=== PATIENT | male | born 1965 | race Caucasian/White ===

== ENCOUNTER → 2018-01-07 09:08 | Outpatient (REF) | payer BC, SELFPAY ==
[2018-01-07 16:22] LABS: Basophils % 0.5 % (0.1-2.0); Eosinophils # 0.3 K/mm3 (0.0-0.4); Eosinophils % 5.1 % (0.1-12.0); Hematocrit 49.2 % (42.0-52.0); Hemoglobin 16.1 g/dL (14.1-18.0); Lymphocytes # 1.7 K/mm3 (0.7-4.5); Mean Corpuscular HGB Conc 32.6 g/dL (31.8-35.4); Mean Corpuscular Hemoglobin 30.6 pg (27.0-31.2); Mean Corpuscular Volume 93.9 fl (80-94); Mean Platelet Volume 8.6 fl (7.4-10.4); Monocytes # 0.3 K/mm3 (0.1-1.0); Monocytes % 6.9 % (1.7-9.3); Neutrophils # 2.6 K/mm3 (1.8-7.8); Neutrophils % 52.6 % (37.0-80.0); Platelet Count 299 K/mm3 (142-424); Red Blood Count 5.25 M/mm3 (4.60-6.20); Red Cell Distribution Width 13.2 % (11.5-17.5)
[2018-01-07 17:05] LABS: Hemoglobin A1C 5.6 % (0.0-7.0)
[2018-01-07 18:41] LABS: Alanine Aminotransferase 48 U/L (12-78); Albumin Level 3.8 gm/dL (3.4-5.0); Albumin/Globulin Ratio 1.1 (1.1-1.8); Alkaline Phosphatase 100 U/L (46-116); Anion Gap 12.2 mEq/L (5-15); Aspartate Amino Transferase 28 U/L (15-37); Bilirubin,Total 0.4 mg/dL (0.2-1.0); Blood Urea Nitrogen 19 mg/dL (7-18); Calcium 8.9 mg/dL (8.5-10.1); Carbon Dioxide 28 mmol/L (21.0-32.0); Chloride 107 mmol/L (98-107); Cholesterol 191 mg/dL (140-200); Creatinine,Serum 1.07 mg/dL (0.70-1.30); Estimated Glomerular Filt Rate 73 ml/min (>60); Free T4 (Free Thyroxine) 0.84 ng/dl (0.76-1.46); GFR (African American) 89 ML/MIN (>60); Globulin 3.4 gm/dl (1.3-3.2); Glucose 110 mg/dL (74-106); HDL Cholesterol 48 mg/dL (27-67); LDL Cholesterol 120 mg/dL (0-130); Potassium 5.2 mmoL/L (3.5-5.1); Sodium 142 mmol/L (136-145); Thyroid Stimulating Hormone 2.65 uIU/ml (0.358-3.740); Total Protein,Serum 7.2 gm/dL (6.4-8.2); Triglycerides 117 mg/dL (30-200); VLDL Cholesterol 23 mg/dL (0-40)
[2018-01-09 12:35] LABS: Vitamin D 25 Hydroxy 25.6 ng/mL (30.0-100.0)
== END ==
LOC: LAB 09:08
PROVIDERS: Visit Provider Nurse Practitioner Family
DX: R53.83 Other fatigue (principal)
CPT/HCPCS: 80053; 80061; 82652; 83036; 84439; 84443; 85025

== ENCOUNTER → 2018-08-05 10:07 | Outpatient (CLI) | payer BC, SELFPAY | PROVIDERS: PCP Emergency Medicine; Visit Provider Physician Assistant | DX: R55 Syncope and collapse (principal) | CPT/HCPCS: 93225; 93226 ==

== ENCOUNTER 2018-08-06 10:17 | Observation (INO) ==
--- NOTE | 2018-08-06 10:21 | Emergency Department Note ---
ED Disposition Clinical Impression: Chest pain, precordial Disposition: Still a Patient Condition on Discharge: Good Referrals: Bladimir Guidry MD [Primary Care Provider] - - Critical Care Critical Care Time: No Attestation: On , the high probability of a clinically significant, sudden or life threa tening deterioration of the following system(s) required my full and direct attention, intervention and personal management. The time I documented below is in addition to time spent performing reported procedures but includes the following listed in this critical care notation. Medical Decision Making - [place] Inquiry Pt receiving controlled substance: No Vital Signs: 08/06/18 10:18 08/06/18 10:43 08/06/18 10:49 Temperature 97.9 F Temperature Source Oral Pulse Rate [Right Radial] 63 66 63 Respiratory Rate 20 16 18 Blood Pressure [Right Arm] 117/85 122/85 114/74 Blood Pressure Mean [Right Arm] 95 97 87 Blood Pressure Source [Right Arm] Automatic Cuff Automatic Cuff Automatic Cuff Blood Pressure Position [Right Arm] Sitting Sitting 02 Sat by Pulse Oximetry 97 95 95 Oxygen Delivery Method Room Air Room Air Room Air 08/06/18 10:55 Temperature Temperature Source Pulse Rate [Right Radial] 66 Respiratory Rate 18 Blood Pressure [Right Arm] 106/73 Blood Pressure Mean [Right Arm] 84 Blood Pressure Source [Right Arm] Automatic Cuff Blood Pressure Position [Right Arm] Sitting 02 Sat by Pulse Oximetry Oxygen Delivery Method - Lab Data Lab Results 08/06/18 10:23: WBC 6.9, RBC 5.15, Hgb 15.8, Hct 48.4, MCV 93.9, MCH 30.7, MCHC 32.7, RDW 13.5, Plt Count 313, MPV 7.0 L, Neut % (Auto) 62.3, Lymph % (Auto) 27.6, [place] % (Auto) 5.2, Eos % (Auto) 4.3, Baso % (Auto) 0.6, Neut # (Auto) 4.3, Lymph # (Auto) 1.9, [place] # (Auto) 0.4, Eos # (Auto) 0.3, Baso # (Auto) 0.0 08/06/18 10:23: Sodium 140, Potassium 4.3, Chloride 106, Carbon Dioxide 27, Anion Gap 11.3, BUN 20 H, Creatinine 1.05, Estimated Creat Clear 117, Estimated GFR 75, Est GFR ( Amer) 90, Glucose 119 H, Calcium 8.6, Total Bilirubin 0 .4, AST 12 L, ALT 31, Alkaline Phosphatase 95, Total Creatine Kinase 89, CK-MB (CK-2) 1.0, CK-MB (CK-2) Rel Index 1.1, Troponin I < 0.02, Total Protein 7.4, Albumin 3.6, Globulin 3.8 H, Albumin/Globulin Ratio 0.9 L 08/06/18 10:23: TSH 3.09, Free T4 Index 1.9 L, Thyroxine (T4) 4.8, T3 Uptake 39 Result diagrams: 08/06/18 10:23 08/06/18 10:23 Orders (Tests/Meds): ED MEDICATIONS Generic Name Dose Route Start Last Admin Trade Name Freq PRN Reason Stop Dose Admin Nitroglycerin 0.4 mg 08/06/18 10:37 08/06/18 10:53 Nitrostat 0.4mg Sl Tablet SL 09/05/18 10:36 1 tab [id number] PRN Administration Chest Pain Discontinued Medications Generic Name Dose Route Start Last Admin Trade Name Freq PRN Reason Stop Dose Admin Aspirin 324 mg 08/06/18 10:25 08/06/18 10:29 Aspirin 81mg Chewable Tablet PO 08/06/18 10:26 324 mg ONCE ONE Administration Nitroglycerin 1 gm 08/06/18 10:57 08/06/18 10:59 Nitroglycerin 1 Inch Oint Udp TD 08/06/18 10:58 1 gm ONCE ONE Administration - Radiology Data #1 Image(s): Chest Image Reviewed: Yes I reviewed the patient's radiology image Preliminary Findings: Normal/NAD - ECG Data Tracing #1 EKG interpreted by Brice Koehler MD: Rhythm: sinus Rate: 61 Harmans: normal Ectopy: none Conduction: normal ST Segment Changes: none T Wave Changes: none Q Waves: none No evidence of acute ischemia or injury Baseline artifact and wander present, but I consider the EKG adequate for accurate interpretation. - Physician Consults Physician Consulted: Chao Time: 11:30 Reason -: Pt condition Comment/Response: Requests cardiology consult Additional Consult: ALLIE Mcfadden, for Dr. Walker Time: 11:37 Reason -: Cardiology Eval/Care Comment/Response: He will see the patient in the emergency department. 12:00 PM: Redd states that the plan is to have the patient admitted and cardiac cath in the morning. He will order an echo for today. - Reevaluation(s) Time: 11:45 Reevaluation #1: pain free. Discussed results. Advised that cardiology service will see him. Medical Decision Narrative: 11:45 AM: ALLIE Mcfadden, for Dr. Walker seeing patient. General Adult HPI - General Chief complaint: Chest Pain Stated complaint: Chest Pain Time Seen by Provider: 08/06/18 10:27 - History of Present Illness HPI narrative: Complains of precordial chest pain that started at 8 AM this morning and is been constant. He describes it as a's feeling like somebody is standing on his c hest. Denies shortness of breath or nausea. Says he is a little diaphoretic. No radiation. Nothing seems to make it better or worse. Currently rates at 4/10. No previous similar chest pains. Currently has a Holter monitor on that was placed yesterday due to syncopal episodes. Holter monitor ordered by Dr. Guidry's office, where he was seen yesterday for a PCP visit. Patient says he has been having fatigue, malaise, sleepiness, dizziness, and syncopal episodes for about 6 months, getting worse lately. Over the weekend, he passed out and hit the back of his head, has an abrasion in that area. Denies headache or neck pain. He is a smoker. Family history of coronary artery disease in his father. He does not have hypertension, diabetes, or hyperlipidemia. Drinks alcohol on weekends, not during the week. Denies drug use. - Related Data Home Medications Medication Instructions Recorded Confirmed No Known Home Medications 08/06/18 08/06/18 Allergies Allergy/AdvReac Type Severity Reaction Status Date / Time NKDA Allergy Unknown Uncoded 08/05/18 09:17 [facility] History I have reviewed the patient's past medical history: Yes Comment: MONO,FATIGUE,TESTOSTERONE DEFICIENCY,BACK PAIN Other Surgeries: Yes: Appendectomy, Hernia Repair Amputation: No Fractures: No Comment: RT KNEE ARTHROSCOPY, PLATE IN RIGHT FOREARM - Social History Smoking Status: Current every day smoker Tobacco Type: cigarettes # Packs/Day (cigarettes): 1 Alcohol Intake: current Alcohol Intake Frequency:: a few times a week Substance Use Type: denies use Occupational Status: employed Housing: house Household Members: none Family Hx:: Cancer, Heart Attack ROS Obtained: Yes All systems reviewed & no additional complaints - Constitutional Constitutional: Reports excessive sweating, Reports fatigue, Denies fever(s), Reports lethargy, Reports malaise, Reports weakness - Cardiovascular Cardiovascular: Reports chest pain - Respiratory Respiratory: No cough, No dyspnea - Gastrointestinal Gastrointestingal: Denies: abdominal pain, nausea, vomiting - Neurologic Neurologic: Denies headache(s) Physical Exam - General General appearance: alert, in no apparent distress - Head Head exam: other (Healing abrasion occipital scalp) - Eye Eye exam: Present: normal appearance, PERRL, EOMI - ENT ENT exam: Present: mucous membranes moist - Neck Neck exam: Present: normal inspection, full ROM, trachea midline. Absent: meningismus, lymphadenopathy - Chest Chest inspection: Present: normal inspection, symmetric chest wall rise. Absent: tenderness - Respiratory Respiratory exam: Present: normal lung sounds bilaterally. Absent: respiratory distress - Cardiovascular Cardiovascular exam: Present: regular rate, normal rhythm. Absent: JVD - Abdominal Exam Abdominal exam: Present: soft, normal bowel sounds. Absent: distention, tenderness, guarding - Extremities Exam Extremities exam: Present: normal inspection, full ROM, normal capillary refill. Absent: calf tenderness - Neurological Exam Neurological exam: Present: alert, oriented X3 - Psychiatric Psychiatric exam: Present: normal affect, normal mood - Skin Skin exam: Present: warm, dry, intact, normal color
[2018-08-06 10:33] LABS: Basophils % 0.6 % (0.1-2.0); Eosinophils # 0.3 K/mm3 (0.0-0.4); Eosinophils % 4.3 % (0.1-12.0); Hematocrit 48.4 % (42.0-52.0); Hemoglobin 15.8 g/dL (14.1-18.0); Lymphocytes # 1.9 K/mm3 (0.7-4.5); Lymphocytes % 27.6 K/mm3 (10-50); Mean Corpuscular HGB Conc 32.7 g/dL (31.8-35.4); Mean Corpuscular Hemoglobin 30.7 pg (27.0-31.2); Mean Corpuscular Volume 93.9 fl (80-94); Monocytes # 0.4 K/mm3 (0.1-1.0); Monocytes % 5.2 % (1.7-9.3); Neutrophils # 4.3 K/mm3 (1.8-7.8); Neutrophils % 62.3 % (37.0-80.0); Platelet Count 313 K/mm3 (142-424); Red Blood Count 5.15 M/mm3 (4.60-6.20); Red Cell Distribution Width 13.5 % (11.5-17.5); White Blood Count 6.9 K/mm3 (4.8-10.8)
[2018-08-06 10:56] LABS: Alanine Aminotransferase 31 U/L (12-78); Albumin Level 3.6 gm/dL (3.4-5.0); Albumin/Globulin Ratio 0.9 (1.1-1.8); Alkaline Phosphatase 95 U/L (46-116); Anion Gap 11.3 mEq/L (5-15); Aspartate Amino Transferase 12 U/L (15-37); Bilirubin,Total 0.4 mg/dL (0.2-1.0); Blood Urea Nitrogen 20 mg/dL (7-18); Calcium 8.6 mg/dL (8.5-10.1); Carbon Dioxide 27 mmol/L (21.0-32.0); Chloride 106 mmol/L (98-107); Creatine Kinase 89 U/L (39-308); Globulin 3.8 gm/dl (1.3-3.2); Glucose 119 mg/dL (74-106); Potassium 4.3 mmoL/L (3.5-5.1); Sodium 140 mmol/L (136-145); Total Protein,Serum 7.4 gm/dL (6.4-8.2)
[2018-08-06 11:10] LABS: Free Thyroxine Index 1.9 ug/dL (5.93-13.13); T4 (Thyroxine) 4.8 ug/dl (4.7-13.3); Thyroid Stimulating Hormone 3.09 uIU/ml (0.358-3.740)
--- NOTE | 2018-08-06 12:29 | Consult Report ---
History of Present Illness Consult date: 08/06/18 Requesting physician: Bladimir Guidry Consult reason: chest pain Chief complaint: chest pain Additional Medical History:: 1. Tobacco use, 2 packs per day for 40 years 2. Strong family history of coronary artery disease in his father and's uncles in their 50s 3. Recurrent syncope History of present illness: 52-year-old white male with history of tobacco use and strong family history of coronary artery disease in his father and uncles presented to the emergency department for chest pain. Patient relates onset of chest pain about 8:00 this morning described as a substernal heaviness and pressure without diaphoresis, nausea or vomiting. Some shortness of breath noted. Patient relates several weeks of increasing weakness and fatigue to the point of limiting activities. Patient denies any history of hypertension, hyperlipidemia or diabetes. He does smoke up to 2 packs per day. He relates 2 episodes of passing out over the last month without warning. Symptoms have not been preceded by coughing, sneezing or laughing excessively. Both times patient fell backwards and hit his head on an object. He was only out briefly before regaining consciousness. His brother was a witness the last time. Denies any history of CVA, TIA or seizure activity. Patient has been seeing Dr. Guidry for workup and has a Holter monitor in place. Due to chest pain, patient was sent to the ER for further evaluation. He did receive a total of 3 sublingual nitroglycerin with improvement in symptoms. Relief of symptoms came after nitroglycerin paste was applied. I nitial EKG shows sinus rhythm with no acute ST segment changes. Initial troponin is normal. Due to the patient's tobacco use, chest pain resolution with nitroglycerin and strong family history of coronary artery disease and recent syncopal episodes, cardiology was consulted for evaluation recommendations. [facility] History Medical History: Denies:: Diabetes Mellitus Type 2 Other Surgeries: Yes: Appendectomy, Hernia Repair Amputation: No Fractures: No - *Social History Smoking Status: Current every day smoker Tobacco Type: cigarettes # Packs/Day (cigarettes): 1 Alcohol Intake: current Alcohol Intake Frequency:: a few times a week Substance Use Type: denies use Occupational Status: employed Housing: house Household Members: none - Psychiatric History Expresses thoughts of harming self/others: None Suicide Plan Description: No Plan *Family Hx:: Cancer, Heart Attack Meds Home Medications Medication Instructions Recorded Confirmed Type No Known Home Medications 08/06/18 08/06/18 History Allergies Allergy/AdvReac Type Severity Reaction Status Date / Time NKDA Allergy Unknown Uncoded 08/05/18 09:17 Review of Systems - *Cardiovascular Reports chest pain, Reports shortness of breath with activity - *Respiratory Reports shortness of breath with activity - *Gastrointestinal Denies abdominal pain, Denies loose stools - *Genitourinary Denies blood in urine - *Musculoskeletal Denies back pain - *Neurologic Reports weakness, Denies headache(s) Exam Vital signs and Labs for Last 24 Hours: Temp Pulse Resp BP Pulse Ox 97.9 F 59 L 18 134/54 96 08/06/18 10:18 08/06/18 12:00 08/06/18 10:55 08/06/18 12:00 08/06/18 12:00 Laboratory Results - last 24 hr 08/06/18 10:23: WBC 6.9, RBC 5.15, Hgb 15.8, Hct 48.4, MCV 93.9, MCH 30.7, MCHC 32.7, RDW 13.5, Plt Count 313, MPV 7.0 L, Neut % (Auto) 62.3, Lymph % (Auto) 27.6, [place] % (Auto) 5.2, Eos % (Auto) 4.3, Baso % (Auto) 0.6, Neut # (Auto) 4.3, Lymph # (Auto) 1.9, [place] # (Auto) 0.4, Eos # (Auto) 0.3, Baso # (Auto) 0.0 08/06/18 10:23: Sodium 140, Potassium 4.3, Chloride 106, Carbon Dioxide 27, Anion Gap 11.3, BUN 20 H, Creatinine 1.05, Estimated Creat Clear 117, Estimated GFR 75, Est GFR ( Amer) 90, Glucose 119 H, Calcium 8.6, Total Bilirubin 0.4, AST 12 L, ALT 31, Alkaline Phosphatase 95, Total Creatine Kinase 89, CK-MB (CK-2) 1.0, CK-MB (CK-2) Rel Index 1.1, Troponin I < 0.02, Total Protein 7.4, Albumin 3.6, Globulin 3.8 H, Albumin/Globulin Ratio 0.9 L 08/06/18 10:23: TSH 3.09, Free T4 Index 1.9 L, Thyroxine (T4) 4.8, T3 Uptake 39 I & O for Last 24 hours: Intake & Output 08/04/18 08/05/18 08/06/18 08/07/18 11:59 11:59 11:59 11:59 Weight 216 lb - *Routine HEENT Exam Head: Present: normocephalic Eye: Present: EOMI, PERRL ENT: Present: mucous membranes moist - *Routine Neck Exam Present: supple. Absent: JVD, carotid bruit - *Routine Respiratory Exam Present: CTA bilaterally. Absent: accessory muscle use, rales, rhonchi, wheezes - *Routine Cardiovascular Exam Present: RRR. Absent: murmur, gallop, rubs - *Routine Abdominal Exam Present: soft. Absent: tenderness, distended, guarding - *Routine Extremities Exam Absent: edema, calf tenderness - *Routine Skin Exam Present: warm. Absent: cyanosis - *Routine Neurological Exam Present: alert, oriented X3, moving all extremities Assessment and Plan (1) Unstable angina Current visit: Yes Status: Acute Category: Medical Code(s): I20.0 - Unstable angina (2) Tobacco use disorder, continuous Current visit: Yes Status: Acute Category: Medical Code(s): F17.209 - Nicotine dependence, unspecified, with unspecified nicotine-induced disorders (3) Family history of coronary artery disease in father Current visit: Yes Status: Acute Category: Medical Code(s): Z82.49 - Family history of ischemic heart disease and other diseases of the circulatory system (4) Recurrent syncope Current visit: Yes Status: Acute Category: Medical Code(s): R55 - Syncope and collapse - Assessment and plan all Dx Assessment and Plan for all problems:: 1. Recommend admission to observation for serial cardiac enzymes, echocardiogram and preparation for cardiac catheterization in the AM. Patient relates he is concerned regarding the chest pain due to friends that are the same age and had the same symptoms and ended up having coronary artery disease requiring stents. 2. Recommend continuing nitroglycerin paste 1/2 inch every 6 hours 3. Add aspirin 81 mg daily, pantoprazole 40 mg daily and metoprolol tartrate 25 mg BID 4. Further recommendations pending above results
--- NOTE | 2018-08-06 13:05 | Pharmacy Consult Notes ---
[facility] Pharmacy VTE Monitoring - Patient Demographics Admission date: 08/06/18 Report Date: 08/06/18 Time: 13:05 Allergies/Adverse Reactions: Patient Allergies No Known Allergies Allergy (Unverified 08/06/18 12:57) Height: 1.78 m Weight: 97.976 kg Patient Problems: Current Active Problems Chest pain, precordial (Acute) Unstable angina (Acute) Tobacco use disorder, continuous (Acute) Family history of coronary artery disease in father (Acute) Recurrent syncope (Acute) - VTE Risk Labs: VTE Related Lab Results Hgb 15.8 g/dL (14.1-18.0) 08/06/18 10:23 Hct 48.4 % (42.0-52.0) 08/06/18 10:23 Plt Count 313 K/mm3 (142-424) 08/06/18 10:23 BUN 20 mg/dL (7-18) H 08/06/18 10:23 Creatinine 1.05 mg/dL (0.70-1.30) 08/06/18 10:23 Estimated Creat Clear 117 mL/min (0-300) 08/06/18 10:23 - Prophylaxis VTE Prophylaxis Ordered?: Yes Types of VTE Prophylaxis: TEDS Knee High Location of Applied Device: Bilateral Lower Extremeties
--- NOTE | 2018-08-07 08:04 | Progress Note ---
Addendum entered and electronically signed by ALLIE Cook 08/07/18 14:56: Cardiac cath shows normal LVEF with only a 30% LAD lesion. Medical therapy with ASA 81 mg daily and atorvastatin 40 mg daily. Recommend 48 hr holter monitor as outpatient for history of syncope. Carotids show only mild stenosis bilaterally. OK for discharge home later today. Follow up in 1-2 wks. Original Note: Subjective Date: 08/07/18 Time: 08:00 Principal diagnosis: chest pain Interval history: 52 yo WM in bed in NAD. No complaints overnight. Telemetry reviewed and no arrhythmias noted. Troponins normal X 3. Echo shows normal LVEF without sign ificant valve abnormalities. Exam Vital signs and Labs for Last 24 Hours: Temp Pulse Resp BP Pulse Ox 97.9 F 50 L 14 111/72 96 08/07/18 03:56 08/07/18 04:00 08/07/18 03:56 08/07/18 03:56 08/07/18 03:56 Laboratory Results - last 24 hr 08/06/18 10:23: WBC 6.9, RBC 5.15, Hgb 15.8, Hct 48.4, MCV 93.9, MCH 30.7, MCHC 32.7, RDW 13.5, Plt Count 313, MPV 7.0 L, Neut % (Auto) 62.3, Lymph % (Auto) 27.6, [place] % (Auto) 5.2, Eos % (Auto) 4.3, Baso % (Auto) 0.6, Neut # (Auto) 4.3, Lymph # (Auto) 1.9, [place] # (Auto) 0.4, Eos # (Auto) 0.3, Baso # (Auto) 0.0 08/06/18 10:23: Sodium 140, Potassium 4.3, Chloride 106, Carbon Dioxide 27, Anion Gap 11.3, BUN 20 H, Creatinine 1.05, Estimated Creat Clear 117, Estimated GFR 75, Est GFR ( Amer) 90, Glucose 119 H, Calcium 8.6, Total Bilirubin 0.4, AST 12 L, ALT 31, Alkaline Phosphatase 95, Total Creatine Kinase 89, CK-MB (CK-2) 1.0, CK-MB (CK-2) Rel Index 1.1, Troponin I < 0.02, Total Protein 7.4, Albumin 3.6, Globulin 3.8 H, Albumin/Globulin Ratio 0.9 L 08/06/18 10:23: TSH 3.09, Free T4 Index 1.9 L, Thyroxine (T4) 4.8, T3 Uptake 39 08/06/18 15:30: Troponin I < 0.02 08/06/18 18:30: Troponin I < 0.02 I & O for Last 24 hours: Intake & Output 08/04/18 08/05/18 08/06/18 08/07/18 11:59 11:59 11:59 11:59 Intake Total 240 / 240 Balance 240 / 240 Weight 216 lb 215 lb 2 oz - *Routine Respiratory Exam Present: CTA bilaterally. Absent: accessory muscle use, rales, rhonchi, wheezes - *Routine Cardiovascular Exam Present: RRR. Absent: murmur, gallop, rubs - *Routine Neurological Exam Present: alert, oriented X3, moving all extremities Progress Note: A&P (1) Unstable angina Status: Acute Current Visit: Yes (2) Tobacco use disorder, continuous Status: Acute Current Visit: Yes (3) Family history of coronary artery disease in father Status: Acute Current Visit: Yes (4) Recurrent syncope Status: Acute Current Visit: Yes Assessment and Plan for All Diagnoses:: Cardiac cath today. If no significant CAD then ok to discharge home and continue holter monitor due to episodes of syncope. Will get carotid ultrasound to assess for AMANDA as source of syncope. Further recommendations to follow.
--- NOTE | 2018-08-07 10:32 | Carotid Imaging Report ---
"Cerebrovascular Exam Indications: 780.2 Syncope and collapse. IMPRESSIONS 1. The bilateral vertebral arteries are patent with normal antegrade flow. 2. Study suggests less than 20% stenosis involving the right internal carotid artery and the left internal carotid artery. History: Syncope. Risk factors: Current tobacco use. Hypertension. Carotid duplex study. Complete study and Doppler flow study including spectral analysis, color and cruz scale imaging. Height: Height: 177.8cm. Height: 70in. Weight: Weight: 98kg. Weight: 215.6lb. Body mass index: BMI: 31kg/m^2. Body surface area: BSA: 2.23m^2. Location: Vascular laboratory. Patient status: Inpatient. Tables: Arterial flow: + +--------+--------+ |Location |V sys |V ed | + +--------+--------+ |Right CCA - proximal|130cm/s |30.6cm/s| + +--------+--------+ |Right CCA - distal |105cm/s |26.7cm/s| + +--------+--------+ |Right ECA |103cm/s |--------| + +--------+--------+ |Right ICA - proximal|101cm/s |29.9cm/s| + +--------+--------+ |Right ICA - mid |80.3cm/s|27.9cm/s| + +--------+--------+ |Right ICA - distal |96.4cm/s|33.5cm/s| + +--------+--------+ |Right vertebral |62.2cm/s|--------| + +--------+--------+ |Left CCA - proximal |134cm/s |32.2cm/s| + +--------+--------+ |Left CCA - distal |105cm/s |29.1cm/s| + +--------+--------+ |Left ECA |96.5cm/s|--------| + +--------+--------+ |Left ICA - proximal |59.6cm/s|23.7cm/s| + +--------+--------+ |Left ICA - mid |89.3cm/s|35.8cm/s| + +--------+--------+ |Left ICA - distal |83.8cm/s|32.5cm/s| + +--------+--------+ |Left vertebral |49.1cm/s|--------| + +--------+--------+ Velocity ratios: + + + + + + | |Right, V sys|Right, V ed|Left, V sys|Left, V ed| + + + + + + |Max ICA/dist CCA|0.96 |1.25 |0.85 |1.23 | + + + + + + (Report amended ) Electronically signed by: Keaton Ham [id number]"
--- NOTE | 2018-08-07 16:43 | H&P/Discharge Summary ---
General - General Admission date:: 08/06/18 Discharge date: 08/07/18 *Admission Date: 08/06/18 *Chief complaint: syncope *History of present illness: 52-year-old white male with history of tobacco use and strong family history of coronary artery disease in his father and uncles presented to the emergency department for chest pain. Patient relates onset of chest pain about 8:00 this morning described as a substernal heaviness and pressure without diaphoresis, nausea or vomiting. Some shortness of breath noted. Patient relates several weeks of increasing weakness and fatigue to the point of limiting activities. Patient denies any history of hypertension, hyperlipidemia or diabetes. He does smoke up to 2 packs per day. He relates 2 episodes of passing out over the last month without warning. Symptoms have not been preceded by coughing, sneezing or laughing excessively. Both times patient fell backwards and hit his head on an object. He was only out briefly before regaining consciousness. His brother was a witness the last time. Denies any history of CVA, TIA or seizure activity. Patient has been seeing Dr. Sánchez for workup and has a Holter monitor in place. Due to chest pain, patient was sent to the ER for further evaluation. He did receive a total of 3 sublingual nitroglycerin with improvement in symptoms. Relief of symptoms came after nitroglycerin paste was applied. Initial EKG shows sinus rhythm with no acute ST segment changes. Initial troponin is normal. Due to the patient's tobacco use, chest pain resolution with nitroglycerin and strong family history of coronary artery disease and recent syncopal episodes, cardiology was consulted for evaluation recommendations. [facility] History I have reviewed the patient's past medical history: Yes Medical History: Denies:: Diabetes Mellitus Type 2 Other Surgeries: Yes: Appendectomy, Hernia Repair Amputation: No Fractures: No - *Social History Educational Level: Completed High School Smoking Status: Current some day smoker Tobacco Type: cigarettes # Packs/Day (cigarettes): 1 Alcohol Intake: current Alcohol Intake Frequency:: a few times a week Substance Use Type: denies use Occupational Status: employed Housing: house Household Members: none - Psychiatric History Expresses thoughts of harming self/others: None Suicide Plan Description: No Plan *Family Hx:: Cancer, Heart Attack Review of Systems - Review of Systems Review of systems:: unable to obtain, other, pertinent systems reviewed and negative unless documented below - *Neurologic Reports weakness, Denies headache(s) Exam Vital signs and Labs for Last 24 Hours: Temp Pulse Resp BP Pulse Ox 97.8 F 55 L 20 111/56 93 L 08/07/18 12:00 08/07/18 14:40 08/07/18 14:40 08/07/18 14:40 08/07/18 14:40 Laboratory Results - last 24 hr 08/06/18 18:30: Troponin I < 0.02 I & O for Last 24 hours: Intake & Output 08/05/18 08/06/18 08/07/18 08/08/18 11:59 11:59 11:59 11:59 Intake Total 240 / 240 860 / 860 Balance 240 / 240 860 / 860 Weight 216 lb 215 lb 2 oz - *Routine HEENT Exam Head: Present: normocephalic Eye: Present: EOMI, PERRL ENT: Present: mucous membranes moist - *Routine Neck Exam Present: supple. Absent: lymphadenopathy - *Routine Respiratory Exam Present: CTA bilaterally - *Routine Cardiovascular Exam Present: RRR, bradycardia - *Routine Abdominal Exam Present: soft, normoactive bowel sounds. Absent: tenderness - *Routine Extremities Exam Absent: cyanosis, clubbing, edema - *Routine Skin Exam Present: warm. Absent: rash - *Routine Neurological Exam Present: alert, oriented X3 - Detailed Eye Exam Eyelids: Left normal inspection Hospital Course Hospital Course: heart cath IMPRESSION: 1. [id number] proximal LAD disease which is nonflow limiting 2. Normal ejection fraction 3. Normal left ventricular end-diastolic pressure PLAN: 1. Standard therapy for ischemic heart disease 2. Evaluation of noncardiac chest pain cardiology consult- see note We will discharge home continue Holter monitor baby aspirin and atorvastatin 40mg daily and follow-up with Dr. Walker Results Labs on day of discharge: Labs from last 24 hours 08/06/18 18:30 Troponin I < 0.02 - Additional Comments rounded with dr sánchez all orders per princess DS: Diagnosis - Discharge Diagnosis (1) Unstable angina Status: Acute (2) Tobacco use disorder, continuous Status: Acute (3) Family history of coronary artery disease in father Status: Acute (4) Recurrent syncope Status: Acute Discharge Medications - Medications for Discharge Home Medication List at Discharge: No Action No Known Home Medications Disposition Disposition: Home, Self-Care
[2018-08-07 18:19] VITALS: BP 116/78
== END 2018-08-07 18:15 | disposition home or self-care (01) ==
LOC: ER 10:17 → 2ND 10:17
PROVIDERS: ADMIT Emergency Medicine; ATTEND Emergency Medicine

== ENCOUNTER → 2020-11-01 14:50 | Outpatient (CLI) | payer BC, SELFPAY ==
[2020-11-01 15:51] LABS: Alanine Aminotransferase 28 U/L (12-78); Albumin Level 4.1 g/dl (3.5-5.0); Albumin/Globulin Ratio 1.4 (1.1-1.8); Alkaline Phosphatase 99 U/L (38-126); Anion Gap 9.8 mEq/L (5-15); Aspartate Amino Transferase 28 U/L (17-59); Bilirubin,Total 0.6 mg/dl (0.2-1.3); Blood Urea Nitrogen 17 mg/dl (9-20); Calcium 9.6 mg/dl (8.4-10.2); Carbon Dioxide 29 mmol/L (22.0-30.0); Chloride 104 mmol/L (98-107); Chol/HDL Ratio 4.6 (1-3.5); Cholesterol 210 mg/dl (140-200); Estimated Glomerular Filt Rate 88 ml/min (>60); GFR (African American) 107 ML/MIN (>60); Glucose 123 mg/dl (74-100); HDL Cholesterol 46 mg/dl (40-60); Potassium 4.8 mmoL/L (3.5-5.1); Sodium 138 mmol/L (136-145); Total Protein,Serum 7.1 g/dl (6.3-8.2); Triglycerides 66 mg/dl (30-150); VLDL Cholesterol 13 mg/dL (0-40)
[2020-11-01 15:55] LABS: Basophils % 0.3 % (0.1-2.0); Eosinophils # 0.1 K/mm3 (0.0-0.4); Eosinophils % 0.9 % (0.1-12.0); Hematocrit 47.5 % (42.0-52.0); Hemoglobin 16.1 g/dL (14.1-18.0); Lymphocytes # 1.1 K/mm3 (0.7-4.5); Mean Corpuscular HGB Conc 33.8 g/dL (31.8-35.4); Mean Corpuscular Hemoglobin 31.8 pg (27.0-31.2); Mean Corpuscular Volume 94.1 fl (80-94); Mean Platelet Volume 8.5 fl (7.4-10.4); Monocytes # 0.4 K/mm3 (0.1-1.0); Monocytes % 4.1 % (1.7-9.3); Neutrophils # 7.2 K/mm3 (1.8-7.8); Neutrophils % 81.7 % (37.0-80.0); Platelet Count 344 K/mm3 (142-424); Red Blood Count 5.04 M/mm3 (4.60-6.20); Red Cell Distribution Width 13.5 % (11.5-17.5); White Blood Count 8.8 K/mm3 (4.8-10.8)
[2020-11-01 16:02] LABS: Direct LDL Cholesterol 141.69 mg/dL (100-129)
[2020-11-01 16:08] LABS: 25-OH Vitamin D, Total 24.2 ng/mL (30-100)
[2020-11-01 16:09] LABS: T4 (Thyroxine) 6.2 ug/dl (5.53-11.0)
[2020-11-01 16:23] LABS: Thyroid Stimulating Hormone 1.41 uIU/mL (0.465-4.68)
[2020-11-03 12:14] LABS: PSA, Free 0.54 ng/mL; Prostate Specific Ag 4.4 ng/mL (0.0-4.0)
== END ==
PROVIDERS: Visit Provider Nurse Practitioner Family
DX: Z00.00 Encounter for general adult medical examination without abnormal findings (principal); R42 Dizziness and giddiness; R11.0 Nausea; I25.10 Atherosclerotic heart disease of native coronary artery without angina pectoris; E78.5 Hyperlipidemia, unspecified; E29.1 Testicular hypofunction
CPT/HCPCS: 80053; 80061; 82306; 84153; 84154; 84436; 84443; 85025

== ENCOUNTER 2025-02-24 13:25 | Outpatient (CLI) | payer BC, SELFPAY ==
[2025-02-24 18:29] LABS: Basophils % 0.4 % (0.1-2.0); Eosinophils # 0.2 K/mm3 (0.0-0.4); Eosinophils % 2.7 % (0.1-12.0); Hematocrit 45.7 % (42.0-52.0); Hemoglobin 15.6 g/dL (14.1-18.0); Lymphocytes % 24.8 % (10-50); Mean Corpuscular HGB Conc 34.1 g/dL (31.8-35.4); Mean Corpuscular Hemoglobin 30.8 pg (27.0-31.2); Mean Corpuscular Volume 90.3 fl (80-94); Mean Platelet Volume 10.1 fl (7.4-10.4); Monocytes # 0.5 K/mm3 (0.1-1.0); Monocytes % 6.6 % (1.7-9.3); Neutrophils # 5.4 K/mm3 (1.8-7.8); Neutrophils % 65.1 % (37.0-80.0); Platelet Count 342 K/mm3 (142-424); Red Blood Count 5.06 M/mm3 (4.60-6.20); Red Cell Distribution Width 13.2 % (11.5-17.5); White Blood Count 8.2 K/mm3 (4.8-10.8)
[2025-02-24 19:07] LABS: Alanine Aminotransferase 31 U/L (12-78); Albumin Level 4.4 g/dl (3.5-5.0); Albumin/Globulin Ratio 1.7 (1.1-1.8); Alkaline Phosphatase 77 U/L (38-126); Anion Gap 13.1 mEq/L (5-15); Aspartate Amino Transferase 35 U/L (17-59); Bilirubin,Total 0.6 mg/dl (0.2-1.3); Blood Urea Nitrogen 15 mg/dl (9-20); Calcium 9.7 mg/dl (8.4-10.2); Carbon Dioxide 27 mmol/L (22.0-30.0); Chloride 103 mmol/L (98-107); Chol/HDL Ratio 3.9 (1-3.5); Cholesterol 185 mg/dl (140-200); Estimated Glomerular Filt Rate 77 ml/min (>60); GFR (African American) 93 ML/MIN (>60); Globulin 2.6 g/dL (1.3-3.2); Glucose 85 mg/dl (74-100); HDL Cholesterol 47 mg/dl (40-60); Potassium 4.1 mmoL/L (3.5-5.1); Sodium 139 mmol/L (136-145); Triglycerides 118 mg/dl (30-150); VLDL Cholesterol 24 mg/dL (0-40)
[2025-02-24 19:18] LABS: Direct LDL Cholesterol 105.01 mg/dL (100-129)
[2025-02-24 19:25] LABS: 25-OH Vitamin D, Total 30.9 ng/mL (30-100)
[2025-02-24 19:39] LABS: Prostate Specific Ag Screen 6.3 ng/ml (0.0-4.0); Thyroid Stimulating Hormone 2.36 uIU/mL (0.465-4.68)
[2025-02-24 20:49] LABS: HIV Combo NEGATIVE (Negative)
[2025-02-24 22:27] LABS: Hepatitis C Ab Qual. W/ RFX NEGATIVE (Negative)
== END 2025-02-24 23:59 | disposition home or self-care (01) ==
LOC: LAB.DROPOF 02-25 12:41
PROVIDERS: PCP Nurse Practitioner Family; Visit Provider Nurse Practitioner Family
DX: E78.2 Mixed hyperlipidemia (principal); Z68.30 Body mass index [BMI] 30.0-30.9, adult; R55 Syncope and collapse; R42 Dizziness and giddiness; I25.10 Atherosclerotic heart disease of native coronary artery without angina pectoris; Z11.59 Encounter for screening for other viral diseases
CPT/HCPCS: 80053; 80061; 82306; 84443; 85025; 86803; 87389; G0103

== ENCOUNTER 2025-03-11 07:55 | Outpatient (CLI) | payer BC, SELFPAY | END 2025-03-11 23:59 | disposition home or self-care (01) | LOC: RT 07:56 | PROVIDERS: PCP Nurse Practitioner Family; Visit Provider Nurse Practitioner Family | DX: R42 Dizziness and giddiness (principal) | CPT/HCPCS: 93270 ==

== ENCOUNTER 2025-04-01 11:14 | Outpatient (CLI) | payer BC, SELFPAY ==
--- NOTE | 2025-04-01 | CA_ITS ---
APPROVED REPORT Exam: Pharmacologic Technologist: Rhonda West Ht: 5 ft 7 in Wt: 213 lbs BSA: 2.08 m2 Medical History Medications: Leticia, Toprol XL, Aspirin, Atorvastatin Stress Test Details Test: Lexiscan Reason for pharmacologic stress test: physical limitation. HR Resting HR: 52 bpm Max Heart Rate (APMHR): 163.765910 bpm Max HR Achieved: 74 bpm Target HR (85% APMHR): 138.109598 bpm % of APMHR: 45.40 Recovery HR: 67 bpm BP Resting BP: 124.0/79.0 mmHg Max BP: 130.0/79.0 mmHg Recovery BP: 120.0/79.0 mmHg ECG Stress ECG Conclusion Symptoms: SOA. Arrhythmias/Ectopy: None. ST-T Changes: EKG [id number]. Electronically signed by : Randi Emery MD 04/01/2025 21:14:00
--- NOTE | 2025-04-01 12:00 | NM_ITS ---
APPROVED REPORT Exam: Nuclear Stress Test Indication: SOB, Fatigue, Dizziness, High cholesterol, Tobacco use, Family history Patient Location: Outpatient Stress Tech: Rhonda Alford [place] Tech:Alyx Lord ARRT RT(R)(N) Ht: 5 ft 10 in Wt: 210 lbs HR: 50 bpm BP: 124/79 mmHg BSA: 2.13 m2 TID: 1.04 BMI: 30.1 History: SOB, Fatigue, Dizziness, High cholesterol, Tobacco use, Family history Procedure: Patient received 0.4 mg of intravenous Lexiscan, resting heart rate 50 bpm, resting blood pressure 124/79 mmHg, with Lexiscan maximum heart rate achieved was 77 bpm which is % of the maximum predicted heart rate and blood pressure was 118/80 mmHg. With Lexiscan, patient denied any complaint of chest pain. Cardiac Stress and Resting SPECT Images: Cardiac Stress and Resting SPECT images were obtained using technetium 99m Myoview 30.4 mCi stress and 10.47 mCi at rest. Resting and stress imaging in supine and prone positions demonstrate a large sized, moderate, partially reversible perfusion defect in the inferior LV wall. Gated imaging demonstrates low-normal global LV systolic function. There is mild hypokinesis of the basal inferior LV wall. LVEF is calculated at 52%. Conclusion: Large sized, moderate, partially reversible perfusion defect in the inferior LV wall. Findings are suggestive of partial reversible ischemia. Gated imaging demonstrates low-normal global LV systolic function. There is mild hypokinesis of the basal inferior LV wall. LVEF is calculated at 52%. Electronically signed by : Randi Emery MD 04/01/2025 21:11:18
[2025-04-01] MEDS: SODIUM CHLORIDE 0.9% 10ML SYR (RAD ONLY) 10 ML IV ×2 (13:46)
[2025-04-01] MEDS: ISOTOPE MYOVIEW (PER STUDY) 1 DOSE IV (13:46)
[2025-04-01] MEDS: REGADENOSON 0.4MG/5ML SYRINGE 0.4 MG IV (13:46)
--- NOTE | 2025-04-01 15:15 | CA_ITS ---
FINAL REPORT TECHNIQUE: Ho scale, color and spectral doppler images of the bilateral carotid arteries were obtained. CLINICAL HISTORY: carotid plaque per dental x-ray, Smoker COMPARISON: None FINDINGS: Peak systolic velocity in the right internal carotid artery is 108.5 cm/sec. The internal carotid to common carotid artery ratio is 1. There is no significant carotid artery stenosis and moderate plaque formation. The right vertebral artery is normal in direction. Peak systolic velocity in the left internal carotid artery is 100.3 cm/sec. The internal carotid to common carotid artery ratio is 1.1. There is no significant carotid artery stenosis and moderate plaque formation. The left vertebral artery is normal in direction. IMPRESSION: Moderate plaque is present in the carotid arteries bilaterally, with less than 50% stenosis of the carotid arteries. Antegrade flow in the bilateral vertebral arteries. Reviewed, Interpreted and Dictated by Higinio Garcia MD Transcribed by Alpa Roper Authenticated and [facility]
== END 2025-04-01 23:59 | disposition home or self-care (01) ==
LOC: RAD 11:15
PROVIDERS: PCP Nurse Practitioner Family; Visit Provider Nurse Practitioner Family
DX: I25.10 Atherosclerotic heart disease of native coronary artery without angina pectoris (principal)
CPT/HCPCS: 78452; 93017; 93018; 93306; 93880; A9502; J2785

== ENCOUNTER 2025-04-22 08:49 | Day surgery (SDC) | payer BC, SELFPAY ==
[2025-04-22] VITALS (10 sets, daily range): BP systolic 90–132; BP diastolic 45–90; PULSE 44–67; RESP 18; O2SAT 93–99; BMI 30.2
--- NOTE | 2025-04-22 07:25 | IR_ITS ---
APPROVED REPORT Patient Location: Outpatient PROCEDURES Left heart catheterization Left ventriculogram Selective coronary angiogram INDICATION Abnormal Myoview, Angina pectoris, Informed consent was obtained prior to the procedure. COMPLICATIONS NONE Estimated Blood Loss: LESS THAN 10 ML TECHNIQUE One percent lidocaine used to anesthetize the right anterior aspect of the wrist. The right radial artery was accessed via the Seldinger technique. A 6 [place] sheath was placed in the right radial artery. 2.5 mg of Verapamil, 800 mcg of nitroglycerin, 1mg Lidocaine and 5000 U Heparin were given through the arterial sheath. The JL3 catheter was also used to perform left heart catheterization, left ventriculogram and selective coronary angiogram. At the end of the procedure the sheath was removed good hemostasis was achieved using Traclet band, patient was transferred to the postop holding area in stable condition. ANGIOGRAPHIC RESULTS The left main artery Normal The left anterior descending artery Normal The circumflex artery Dominant normal The right coronary artery Normal The WOOD ventriculogram reveals Slightly reduced at 50% The left ventricular end-diastolic pressure 10 mmHg IMPRESSION Normal coronary arteries Slight reduction in ejection fraction Normal LVEDP PLAN 1. Consider cardiac MRI if clinically appropriate 2. Medical management Electronically signed by : Bandar Walker MD 04/22/2025 10:05:44
[2025-04-22 09:04] LABS: Basophils # 0.1 K/mm3 (0-0.2); Basophils % 0.8 % (0.1-2.0); Eosinophils # 0.4 Kmm3 (0.0-0.4); Eosinophils % 4.8 % (0.1-12.0); Hemoglobin 15.7 g/dL (14.1-18.0); Immature Granulocytes # 0.04 10^3uL; Immature Granulocytes % 0.5 %; Lymphocytes # 2.4 K/mm3 (0.7-4.5); Lymphocytes % 31.5 % (10-50); Mean Corpuscular HGB Conc 32.7 g/dL (31.8-35.4); Mean Corpuscular Volume 91.8 fl (80-94); Mean Platelet Volume 9.4 fl (7.4-10.4); Monocytes # 0.5 K/mm3 (0.1-1.0); Neutrophils # 4.2 K/mm3 (1.8-7.8); Neutrophils % 55.4 % (37.0-80.0); Nucleated Red Blood Cells # 0 10^3/uL; Nucleated Red Blood Cells % 0 %; Platelet Count 280 K/mm3 (142-424); Red Blood Count 5.23 M/mm3 (4.60-6.20); Red Cell Distribution Width 12.9 % (11.5-17.5); Red Cell Distribution Width-SD 43.2 fL; White Blood Count 7.5 K/mm3 (4.8-10.8)
[2025-04-22 09:17] LABS: Blood Urea Nitrogen 19 mg/dl (9-20); Calcium 9.3 mg/dl (8.4-10.2); Carbon Dioxide 30 mmol/L (22.0-30.0); Chloride 105 mmol/L (98-107); Creatinine Clearance Estimated 100 mL/min (50-200); Estimated Glomerular Filt Rate 69 ml/min (>60); GFR (African American) 83 ML/MIN (>60); Glucose 104 mg/dl (74-100); Sodium 137 mmol/L (136-145)
[2025-04-22] MEDS: NITROGLYCERIN 800MCG/8ML SYR (CATH LAB) 800 MCG IA (09:40)
[2025-04-22] MEDS: diphenhydrAMINE 50MG/ML VIAL 50 MG IV (09:40)
[2025-04-22] MEDS: HEPARIN 1,000 UNITS/ML 10ML VIAL (CATH LAB) 5000 UNIT IV (09:40)
[2025-04-22] MEDS: HEPARIN 1,000 UNITS/500ML NS (CATH LAB) 3000 UNIT IV (09:40)
[2025-04-22] MEDS: FENTANYL 100MCG/2ML VIAL 50 MCG IV (09:41)
[2025-04-22] MEDS: 0.9 % SODIUM CHLORIDE 500 ML 25 ML IV (09:41)
[2025-04-22] MEDS: MIDAZOLAM HCL 1MG/ML 5ML VIAL 1 MG IV (09:41)
[2025-04-22] MEDS: LIDOCAINE 1% 10ML MDV 10 ML IJ (09:41)
[2025-04-22] MEDS: IOPAMIDOL-370 (76%);100ML BOTTLE 50 ML IV (10:30)
[2025-04-22] MEDS: VERAPAMIL 2.5MG/ML 2ML VIAL 2.5 MG IV (11:09)
== END 2025-04-22 12:30 | disposition home or self-care (01) ==
PROVIDERS: PCP Nurse Practitioner Family; Visit Provider Internal Medicine
PROC: 4A023N7 Measurement of Cardiac Sampling and Pressure, Left Heart, Percutaneous Approach (ICD-10-PCS; CPT 93452; principal; 2025-04-22 09:45)
DX: I25.110 Atherosclerotic heart disease of native coronary artery with unstable angina pectoris (principal); R93.1 Abnormal findings on diagnostic imaging of heart and coronary circulation; Z79.899 Other long term (current) drug therapy; E78.5 Hyperlipidemia, unspecified; F17.210 Nicotine dependence, cigarettes, uncomplicated; F10.90 Alcohol use, unspecified, uncomplicated; I65.23 Occlusion and stenosis of bilateral carotid arteries
CPT/HCPCS: 36415; 80048; 85025; 93458; 99152; C1725; C1769; J1200; J1644; J3010; Q9967

== ENCOUNTER 2025-05-12 08:02 | Day surgery (SDC) | payer BC, SELFPAY ==
[2025-05-12 08:54] VITALS: BP 120/85; PULSE 75; RESP 18; TEMP 36.3; O2SAT 98
[2025-05-12 09:03] VITALS: BMI 30.8
--- NOTE | 2025-05-12 09:23 | P.HP_ITS ---
History of Present Illness *Admission Date: 05/12/25 *Reason for visit:: Screening colonoscopy *History of present illness: Mr. Garcia is a 59-year-old gentleman who is here for screening colonoscopy. Both of his parents had colon cancer and last colonoscopy was 8 years ago. The examination is deemed medically necessary for screening colonoscopy. The patient has been seen, interviewed and examined prior to the procedure by both myself and the anesthesia provider. [facility] Disclaimer: The information contained in this section may have been updated after the patient was seen, as this information can be updated by other users. Medical History (Updated 05/12/25 @ 09:34 by Albin Ring II, MD) Abnormal nuclear cardiac imaging test Angina pectoris Stenosis of carotid artery HLD (hyperlipidemia) CAD (coronary artery disease) Surgical History (Updated 05/12/25 @ 08:52 by Mayuri Vasquez RN) H/O arthroscopic knee surgery History of appendectomy Family History (Updated 05/12/25 @ 08:52 by Mayuri Vasquez RN) Other No significant family history Social History Smoking Status: Current every day smoker tobacco type: cigarettes packs per day: 1 alcohol intake: current alcohol intake frequency: a few times a week substance use type: denies use current occupational status: employed Travel in the last 8 weeks?: None household members: none housing: house current occupation: [employer] Have you lived/traveled outside [place] in past 30 days?: No Contact w/someone who lives/traveled outside [place] past 30 days?: No Exposure to someone with infectious disease in past 14 days?: No Do you have a fever (greater than 100.4 F or 38 C)?: No Have you tested positive for COVID-19?: No Exposed to someone with COVID-19 in past 14 days?: No Do you have a sore throat?: No Do you have a cough?: No Do you have any weakness?: No Do you have any diarrhea?: No Are you experiencing any unusual bleeding?: No Do you have any muscle aches/pain?: No Do you have any abdominal pain?: No Are you experiencing loss of taste or smell?: No Other Medical History Have you received the Flu Vaccine for this season: No Have you received the Pneumonia Vaccine: No Review of Systems Review of Systems Review of systems (narrative): Negative *Cardiovascular Comments: Negative *Gastrointestinal Comments: Negative *Genitourinary Comments: Negative *Musculoskeletal Comments: Negative *Neurologic Comments: Negative Meds Home Medications and Allergies Home Medications ?Medication ?Instructions ?Recorded ?Confirmed ?Type aspirin 81 mg tablet,delayed 81 mg PO DAILY #30 tabs 0 03/10/25 05/12/25 Rx release (Adult Low Dose Aspirin) New Prescriptions to Start Prescriptions: Allergies Allergy/AdvReac Type Severity Reaction Status Date / Time No Known Allergies Allergy Verified 05/12/25 08:52 Exam Data for Last 24 hours Vital signs and Labs for Last 24 Hours: Temp Pulse Resp BP Pulse Ox O2 Del Method 97.3 F L 75 18 120/85 98 Room Air 05/12/25 08:54 05/12/25 08:54 05/12/25 08:54 05/12/25 08:54 05/12/25 08:54 05/12/25 08:54 I & O for Last 24 hours: Intake & Output 05/09/25 05/10/25 05/11/25 05/12/25 23:59 23:59 23:59 23:59 Weight 215 lb *Routine HEENT Exam Head: Present normocephalic Eye: Present EOMI and PERRL ENT: Present mucous membranes moist *Routine Neck Exam Neck: Present supple *Routine Respiratory Exam Respiratory: Present CTA bilaterally *Routine Cardiovascular Exam Cardiovascular: Present RRR *Routine Abdominal Exam Abdominal: Present soft and normoactive bowel sounds; Absent tenderness *Routine Rectal Exam Rectal:: deferred *Routine Genitalia Exam Genitalia:: deferred *Routine Extremities Exam Extremities: Absent cyanosis, clubbing or edema *Routine Skin Exam Skin: Present warm; Absent rash *Routine Neurological Exam Neurological: Present alert and oriented X3 Assessment and Plan *Assessment and plan (1) Family history of colon cancer: Status: Acute Category: Medical Code(s): Z80.0 - Family history of malignant neoplasm of digestive organs (2) Screening for colon cancer: Status: Acute Category: Medical Code(s): Z12.11 - Encounter for screening for malignant neoplasm of colon Plan A/P: 1. Screening for colon cancer is the preprocedural diagnosis. The patient's mother and father both had colon cancer in their early 70s. The patient's last colonoscopy was 8 years ago. The patient will be anesthetized/sedated using MAC sedation. The patient has been seen and examined. Cardiac and lung assessment prior to the examination is stable. Proceed with planned screening colonoscopy.
--- NOTE | 2025-05-12 09:35 | HMH.PROCNOTE ---
[facility] Procedure Note Date: 05/12/25 Time: 09:50 Procedure Note:: Colonoscopy Procedure Report: Colonoscopy with cold snare polypectomy Endoscopist: Albin Ring II, MD Referring physician: MARLENE Garcia Date of Procedure: May 12, 2025 Equipment: Olympus 190 variable stiffness pediatric colonoscope Sedation: MAC sedation Indication: Mr. Garcia is a 59-year-old gentleman who is here for follow-up screening/surveillance colonoscopy. Both his mother and his father had colon cancer in their early 70s. The patient's last colonoscopy was 8 years ago and was normal. He reports no abdominal pain, weight loss, change in his bowel habits or rectal bleeding. He does have some mild chronic constipation. Procedure: Prior to the procedure, a history and physical exam was performed, and patient's medications and allergies were reviewed. The risks, benefits and alternatives of the sedation and procedure were discussed with the patient. All questions were answered and informed consent was obtained. The patient was brought to the procedure room. Patient identification and proposed procedure were verified by the physician and the nurse. The patient was placed in a left lateral decubitus position and the scope was passed under direct vision. Throughout the procedure, the patient's blood pressure, pulse, and oxygen saturations were monitored continuously. The colonoscopy was accomplished without difficulty. The patient tolerated the procedure well. Findings: On digital rectal examination there was normal rectal tone. There were no external hemorrhoids. The prostate was 2-3+, mildly enlarged but smooth, soft, symmetric without nodules. The colonoscope was introduced through the anal canal to the rectum and advanced to the cecum. The ileocecal valve and appendiceal orifice were identified. The scope was advanced a short distance into the ileum which appeared grossly normal. The scope was then withdrawn into the colon. There were 3 polyps (transverse x 1 (5 mm), descending x 1 (7 mm) and sigmoid x 1 (7 mm)). These were all removed via cold snare polypectomy. The remaining cecum, ascending and transverse colon and mucosa were grossly normal. There were mildly scattered diverticuli throughout the descending and sigmoid colon (LEFT colon). The rectum itself was normal. Upon retroflexion within the rectum there were grade 2 internal hemorrhoids. The preparation was excellent throughout with [place] Preparation Score of 9. The cecal time was 12 minutes. Impression: 1. Colonic polyps x 3 2. Mild left-sided diverticulosis 3. Grade 2 internal hemorrhoids Plan: I will follow-up the polyp histology and recommend repeat surveillance colonoscopy again in 5 years based upon the pathology. I would encourage a fiber bowel regimen on a long-term daily maintenance basis.
[2025-05-12 09:54] VITALS: BP 122/72; PULSE 55; RESP 17; TEMP 36.1; O2SAT 96
[2025-05-12 10:04] VITALS: BP 107/73; PULSE 87; RESP 20; O2SAT 97
[2025-05-12 10:14] VITALS: BP 99/75; PULSE 81; RESP 20; O2SAT 97
[2025-05-12 10:24] VITALS: BP 96/70; PULSE 84; RESP 18; TEMP 36.1; O2SAT 98
== END 2025-05-12 10:38 | disposition home or self-care (01) ==
PROVIDERS: PCP Nurse Practitioner Family; Visit Provider Internal Medicine Gastroenterology
PROC: 0DJD8ZZ Inspection of Lower Intestinal Tract, Via Natural or Artificial Opening Endoscopic (ICD-10-PCS; CPT 45378; principal; 2025-05-12 10:00)
DX: Z12.11 Encounter for screening for malignant neoplasm of colon (principal); Z80.0 Family history of malignant neoplasm of digestive organs; D12.4 Benign neoplasm of descending colon; D12.3 Benign neoplasm of transverse colon; K63.5 Polyp of colon; K57.30 Diverticulosis of large intestine without perforation or abscess without bleeding; K64.1 Second degree hemorrhoids; F17.210 Nicotine dependence, cigarettes, uncomplicated; Z90.49 Acquired absence of other specified parts of digestive tract; Z79.82 Long term (current) use of aspirin
CPT/HCPCS: 45385; J2003; J2704

== ENCOUNTER 2025-05-25 14:11 | Outpatient (CLI) | payer BC, SELFPAY ==
--- OUTSIDE RECORDS SUMMARY | 2024-08-16 20:00 | XMS_ITS | Continuity of Care Document ---
Author Organization [facility] Address [address] [place] [address] Phone Care Team Providers Care It Associate Name Role Phone Caron HUGHES, Ansley Unavailable [...] Date Provider Providers Copied on Encounter [facility], [facility] [place], [address], [place] tel:[phone] No Information 4 Caron Panchal. [address] [place], [place], [id number], [place]. tel:[phone] [facility], [facility] [place], [address], [place] tel:[phone] [facility] Radiculopathy , cervical region 4 Hugh Lyssa. [address] [place], [place], [address], [place]. tel:[phone] Referring Provider: Bladimir Hood, [address] [place], [address]. tel:[phone] [facility], [facility] [place], [address], [place] tel:[phone] [facility] Radiculopathy , cervical region 4 Caron Panchal. [address] [place], [place], [id number], [place]. tel:[phone] Referring Provider: Bladimir Hood, [facility]5 [place], [address]. tel:[phone] [facility], [address] [place], [address], [place] tel:[phone] [facility] Radiculopathy , cervical region 4 Caron Panchal. [address] [place], [place], [id number], [place]. tel:[phone] Referring Provider: Bladimir Hood, [address] [place] [address], [address]. tel:[phone] Office/outpa tient visit,est, high [facility], [facility] [place], [address], [place] tel:[phone] [facility] Radiculopathy , cervical region 4 Erwin Garrison. [address] [place], [address]. tel:[phone] Referring Provider: Amador Branham, [facility] [place], [address]. tel:[phone] [facility], [address] [place], [address], [place] tel:[phone] [facility] Spondylosis without myelopathy or radiculopathy , cervical region 4 Yonas English. [address] [place], [address], [place]. tel:[phone] Gerald Guidry. tel:[phone] ring Provider: Amador Branham, [address] [place], [address]. tel:[phone] Office/outpa tient visit,est, mod [facility], [address] [place], [address], [place] tel:[phone] [facility] CervicalgiaRa diculopathy, cervical region May- 4 Maikel Mcgovern. [address], [place], [place], [id number], . tel:[phone] Referring Provider: Amador Branham, [address] [place], [address]. tel:[phone] [facility], [facility] [place], [address], [place] tel:[phone] [facility] No Information May- 4 Yonas English. [address] [place], [address], [place]. tel:[phone] Referring Provider: Amador Branham, [facility] [place], [address]. tel:[phone] Office/outpa tient visit,est, mod [facility], [facility] [place], [address], [place] tel:[phone] [facility] Cervicalgia April- 4 Maikel Mcgovern. [address], [place], [place], [id number], [place]. tel:[phone] Gerald Guidry. tel:[phone] ring Provider: Bladimir Aguilar, [facility] [place], [address]. tel:[phone] [facility], [facility] [place], [address], [place] tel:[phone] [facility] Radiculopathy , cervical region Mar- 4 Yonas English. [address] [place] [address], [address], [place]. tel:[phone] Gerald Guidry. tel:[phone] ring Provider: Bladimir Aguilar, [address] [place], [place], [facility]. tel:[phone] [facility], [address] [place], [address], [place] tel:[phone] [facility] Radiculopathy , cervical region 4 Yonas English. [address] [place], [address], [place]. tel:[phone] Gerald Guidry. tel:[phone] ring Provider: Bladimir Aguilar, [address] [facility], [place], [address]. tel:[phone] Office/outpa tient visit,est, mod [facility], [address] [place], [address], [place] tel:[phone] [facility] CervicalgiaRa diculopathy, cervical region 4 Maikel Mcgovern. [address] [place], [place], [address], [place]. tel:[phone] Gerald Cardosoey. tel:[phone] ring Provider: Bladimir Aguilar, [address] [facility], [place], [address]. tel:[phone] [facility], [address] [place], [address], [place] tel:[phone] [facility] Radiculopathy , cervical region 3 Jenaro Gene. [address] [place], [place], [address], [place]. tel:[phone] Referring Provider: Bladimir Aguilar, [address] [facility], [place], [address]. tel:[phone] [facility], [address] [place], [address], [place] tel:[phone] [facility] Radiculopathy , cervical region 2 Jenaro Gene. [address] [place], [place], [id number], [place]. tel:[phone] Referring Provider: Lyssa Leonard, [address] [place], [address]. tel:[phone] Office/outpa tient visit,est, mod [facility], [facility] [place], [address], [place] tel:[phone] [facility] CervicalgiaSp ondylosis w/o myelopathy or radiculopathy , cervical regionRadicul opathy, cervical region Oct- 0-202 2 Horacio Omalley. [address] [place], [address], [place]. tel:[phone] Referring Provider: Bladimir Aguilar, [address] [place], [place], [facility]. tel:[phone] [facility], [address] [place] [address], [facility], [place] tel:[phone] [facility] Radiculopathy , cervical region Oct-0 1 Jenaro Gene. [address] [place], [place], [address], [place]. tel:[phone] Referring Provider: Bladimir Aguilar, 500 [facility], [place], [place], [facility]. tel:[phone] [facility], [address] [place] [address], [address], [place] tel:[phone] [facility] Radiculopathy , cervical region Sep-2 1 Jenaro Gene. [address] [place], [place], [address], [place]. tel:[phone] Referring Provider: Bladimir Aguilar, [address] [place], [place], [facility]. tel:[phone] [facility], [facility] [place], [address], [place] tel:[phone] [facility] Radiculopathy , cervical region Jul- 1 Jenrao Gene. [address] [place], [place], [id number], [place]. tel:[phone] Referring Provider: Blaidmir Aguilar, [address] [place], [place], [facility]. tel:[phone] Office/outpa tient visit,[facility], [address] [place], [place], [facility], tel:[phone] [facility] Spondylosis w/o myelopathy or radiculopathy , cervical regionRadicul opathy, cervical region 1 Jenaro Brian. [address] [place], [place], [address], [place]. tel:[phone] Referring Provider: Bladimir Aguilar, [address] [place], [place], [facility]. tel:[phone] Office/outpa tient visit,[facility], [facility] [place], [facility], tel:[phone] [facility] Cervicalgia 1 David Garrison. [address] [place], [place], [facility], [place]. tel:[phone] Specialist: Gerald Guidry, [address] [place] [address], [place], [address]. tel:[phone] ring Provider: Bladimir Aguilar, [address] [place] [address], [facility]. tel:[phone] Family History Family Member Type Diagnosis Age At Onset No Information Payers Payer name Insurance type Covered green party ID Ramandeep alva(s) [place] - [id number] Social History Type Description Quantity Date Captured [...]
--- OUTSIDE RECORDS SUMMARY | 2025-05-26 13:58 | XMS_ITS | Clinical Summary ---
Author Organization [facility] Address [address] [place] [address] Phone Care Team Providers Care Fitness/Wellness Director Name Role Phone Unavailable Primary Care Provider Unavailabl e Allergies No known active allergies Social History Tobacco Use Types Packs/Day Years Used Date Smoking Tobacco: Never Assessed Alcohol Use Standard Drinks/Week Comments Yes 10 (1 standard drink = 0.6 oz pu re alcohol) Sex and Gender Information Value Date Recorded Sex Assigned at Not on file Legal Sex Male 8:50 PM EDT Gender Identity Not on file Sexual Orientation Not on file Obstetrics History Plan of Treatment Health Maintenance Due Date Last Done Comments Annual Wellness Exam 1970 DTaP/TDaP/Td (1 - Tdap) 1986 Hepatitis B Vaccine (1 of 3 - 19+ 3-dose series) 1986 Cologuard 2012 Colon Cancer Screening 2012 Colonoscopy 2012 FIT 2012 Sigmoidoscopy 2012 Virtual Colonography 2012 Pneumococcal Vaccine 50+ (1 of 1 - PCV) 2017 Zoster (1 of 2) 2017 COVID-19 Vaccine ( - 2023-2 5 season) 2024 Influenza Vaccine (Season Ended) 2025 Meningococcal B Vaccine Aged Out No l onger eligible based on patient's age to complete this topic
[2025-06-02 21:36] LABS: Testosterone, Total, LC/MS 251 ng/dL (.)
== END 2025-05-25 23:59 | disposition home or self-care (01) ==
LOC: LAB.DROPOF 05-26 13:55
PROVIDERS: PCP Nurse Practitioner Family; Visit Provider Nurse Practitioner Family
DX: E29.1 Testicular hypofunction (principal)
CPT/HCPCS: 84403

== ENCOUNTER 2025-06-01 06:32 | Outpatient (CLI) | payer BC, SELFPAY ==
--- OUTSIDE RECORDS SUMMARY | 2024-08-16 20:00 | XMS_ITS | Continuity of Care Document ---
Author Organization [facility] Address [address] [place] [address] Phone Care Team Providers [employer] Name Role Phone Caron HUGHES, Ansley Unavailable [...] Date Provider Providers Copied on Encounter [facility], [facility] [place], [address], [place] tel:[phone] No Information 4 Caron Panchal. [address] [place], [place], [id number], [place]. tel:[phone] [facility], [facility] [place], [address], [place] tel:[phone] [facility] Radiculopathy , cervical region 4 Hugh Lyssa. [address] [place], [place], [id number], [place]. tel:[phone] Referring Provider: Bladimir Hood, [address] [place], [address]. tel:[phone] [facility], [facility] [place], [address], [place] tel:[phone] [facility] Radiculopathy , cervical region 4 Caron Panchal. [address] [place], [place], [id number], [place]. tel:[phone] Referring Provider: Bladimir Hood, [facility] [place], [address]. tel:[phone] [facility], [address] [place], [address], [place] tel:[phone] [facility] Radiculopathy , cervical region 4 Caron Panchal. [address] [place], [place], [id number], [place]. tel:[phone] Referring Provider: Bladimir Hood, [address] [place] [address], [address]. tel:[phone] Office/outpa tient visit,est, high [facility], [facility] [place], [address], [place] tel:[phone] [facility] Radiculopathy , cervical region 4 Erwin Garrison. [address] [place], [address]. tel:[phone] Referring Provider: Amador Branham, [facility] [place], [address]. tel:[phone] [facility], [address] [place], [address], [place] tel:[phone] [facility] Spondylosis without myelopathy or radiculopathy , cervical region 4 Yonas English. [address] [place], [address], [place]. tel:[phone] Gerald Guidry. tel:[phone] ring Provider: Amador Branham, [address] [place], [address]. tel:[phone] Office/outpa tient visit,est, mod [facility], [address] [place], [address], [place] tel:[phone] [facility] CervicalgiaRa diculopathy, cervical region May- 4 Maikel Mcgovern. [address], [place], [place], [id number], . tel:[phone] Referring Provider: Amador Branham, [address] [place], [address]. tel:[phone] [facility], [facility] [place], [address], [place] tel:[phone] [facility] No Information May- 4 Yonas English. [address] [place], [address], [place]. tel:[phone] Referring Provider: Amador Branham, [place], [address]. tel:[phone] Office/outpa tient visit,est, mod [facility], [facility] [place], [address], [place] tel:[phone] [facility] Cervicalgia April- 4 Maikel Mcgovern. [address], [place], [place], [address], [place]. tel:[phone] Gerald Guidry. tel:[phone] ring Provider: Bladimir Aguilar, [facility] [place], [address]. tel:[phone] [facility], [facility] [place], [address], [place] tel:[phone] [facility] Radiculopathy , cervical region Mar- 4 Yonas English. [address] [place] [address], [address], [place]. tel:[phone] Gerald Guidry. tel:[phone] ring Provider: Bladimir Aguilar, [address] [place], [place], [facility]. tel:[phone] [facility], [address] [place], [address], [place] tel:[phone] [facility] Radiculopathy , cervical region 4 Yonas English. [address] [place], [address], [place]. tel:[phone] Gerald Guidry. tel:[phone] ring Provider: Bladimir Aguilar, [address] [facility], [place], [address]. tel:[phone] Office/outpa tient visit,est, mod [facility], [address] [place], [address], [place] tel:[phone] [facility] CervicalgiaRa diculopathy, cervical region 4 Maikel Mcgovern. [address] [place], [place], [id number], [place]. tel:[phone] Gerald Cardosoey. tel:[phone] ring Provider: Bladimir Aguilar, [address] [facility], [place], [address]. tel:[phone] [facility], [address] [place], [address], [place] tel:[phone] [facility] Radiculopathy , cervical region 3 Jenaro Gene. [address] [place], [place], [id number], [place]. tel:[phone] Referring Provider: Bladimir Aguilar, [address] [facility], [place], [address]. tel:[phone] [facility], [address] [place], [address], [place] tel:[phone] [facility] Radiculopathy , cervical region 2 Jenaro Gene. [address] [place], [place], [id number], [place]. tel:[phone] Referring Provider: Lyssa Leonard, [address] [place], [address]. tel:[phone] Office/outpa tient visit,est, mod [facility], [facility] [place], [address], [place] tel:[phone] [facility] CervicalgiaSp ondylosis w/o myelopathy or radiculopathy , cervical regionRadicul opathy, cervical region Oct- 0-202 2 Horacio Omalley. [address] [employer] [place], [address], [place]. tel:[phone] Referring Provider: Bladimir Aguilar, [address] [place], [place], [facility]. tel:[phone] [facility], [address] [place] [address], [facility], [place] tel:[phone] [facility] Radiculopathy , cervical region Oct-0 1 Jenaro Gene. [address] [place], [place], [id number], [place]. tel:[phone] Referring Provider: Bladimir Aguilar, 500 [facility], [place], [facility]. tel:[phone] [facility], [address] [place] [address], [address], [place] tel:[phone] [facility] Radiculopathy , cervical region Sep-2 1 Jenaro Gene. [address] [place], [place], [id number], [place]. tel:[phone] Referring Provider: Bladimir Aguilar, [address] [place], [place], [facility]. tel:[phone] [facility], [facility] [place], [address], [place] tel:[phone] [facility] Radiculopathy , cervical region Jul- 1 Jenaro Gene. [address] [place], [place], [id number], [place]. tel:[phone] Referring Provider: Bladimir Aguilar, [address] [place], [place], [facility]. tel:[phone] Office/outpa tient visit,[facility], [address] [place], [place], [facility], tel:[phone] [facility] Spondylosis w/o myelopathy or radiculopathy , cervical regionRadicul opathy, cervical region 1 Jenaro Brian. [address] [place], [place], [id number], [place]. tel:[phone] Referring Provider: Bladimir Aguilar, [address] [place], [place], [facility]. tel:[phone] Office/outpa tient visit,[facility], [facility] [place], [facility], tel:[phone] [facility] Cervicalgia 1 David Garrison. [address] [place], [place], [facility], [place]. tel:[phone] Specialist: Gerald Guidry, [address] [place] [address] 302, [place], [address]. tel:[phone] ring Provider: Bladimir Aguilar, [address] [place] [address], [facility]. tel:[phone] Family History Family Member Type Diagnosis Age At Onset No Information Payers Payer name Insurance type Covered constitution party ID Ramandeep alva(s) [place] - [id number] Social History Type Description Quantity Date Captured [...]
--- OUTSIDE RECORDS SUMMARY | 2025-06-01 06:34 | XMS_ITS | Clinical Summary ---
Author Organization [facility] Address [address] [place] [address] Phone Care Team Providers Care Finance Officer Name Role Phone Unavailable Primary Care Provider [...]
--- NOTE | 2025-06-01 07:00 | CT_ITS ---
FINAL REPORT TECHNIQUE: Axial CT images of the chest were obtained without contrast. Coronal and sagittal reconstructed images were obtained and reviewed. Low-dose protocol was utilized. This study was performed with techniques to keep radiation doses as low as reasonably achievable (ALARA). Individualized dose reduction techniques using automated exposure control or adjustment of mA and/or kV according to the patient's size were employed. CLINICAL HISTORY: Lung cancer screening. SMOKER 1PPD FOR 40 YEARS COMPARISON: None FINDINGS: CT CHEST WITHOUT, LOW DOSE SCREENING CTDl vol(mGy): 2.90 DLP (mGy-cm): 116.17 Current smoker 40 pack year history There is no axillary adenopathy. There is no hilar or mediastinal adenopathy. The heart size is normal. There are mild vascular calcifications. There is no pericardial or pleural effusion. Lung window images demonstrate no suspicious infiltrate or nodule. Limited images of the upper abdomen are unremarkable. IMPRESSION: Lung RADS category 1. Recommend 12 month follow-up low-dose chest CT per Fleischner criteria. Reviewed, Interpreted and Dictated by Higinio Garcia MD Transcribed by Veronica Cobian Authenticated and [facility]
== END 2025-06-01 23:59 | disposition home or self-care (01) ==
LOC: RAD 06:33
PROVIDERS: PCP Nurse Practitioner Family; Visit Provider Nurse Practitioner Family
DX: F17.200 Nicotine dependence, unspecified, uncomplicated (principal); Z12.2 Encounter for screening for malignant neoplasm of respiratory organs
CPT/HCPCS: 71271

== ENCOUNTER 2025-06-10 08:27 | Outpatient (CLI) | payer BC, SELFPAY ==
--- OUTSIDE RECORDS SUMMARY | 2024-08-16 20:00 | XMS_ITS | Continuity of Care Document ---
Author Organization [facility] Address [address] [place] [address] Phone Care Team Providers Care Train Crew Member Name Role Phone Caron HUGHES, Ansley Unavailable Unavailab le Allergies, Adverse Reactions, Alerts Substance Reaction Status Criticality No Known allergies Medications Medication Instructions Dosage Effective Dates (start - stop) Status Comments No Drug Therapy Prescribed Procedures Procedure Date Neuromuscular re-edu Physical Tx exercise Manual therapy 1+ regions Neuromuscular re-edu Physical Tx exercise Manual therapy 1+ regions PT EVAL LOW COMPLEX 20 MIN Neuromuscular re-edu Physical Tx exercise Manual therapy 1+ regions Office/outpatient visit,est, high X-ray exam of neck spine, complete INJ PARAVERT F JNT C/T 1 LEV INJ PARAVERT F JNT C/T 2 LEV Office/outpatient visit,est, mod 2023 MRI Cervical Spine wo Contrast Office/outpatient visit,est, mod 2023 Inject nerve block, brachial plexus Fluoroscopic Guidance Needle Placement A Inj Methylpred Acetate 1 MG Njx interlaminar crv/thrc Methylprednisolone 40 MG inj Office/outpatient visit,est, mod 2023 Njx interlaminar crv/thrc Dexamethasone sodium phos Njx interlaminar crv/thrc Dexamethasone sodium phos Office/outpatient visit,est, mod 2021 Njx interlaminar crv/thrc LOCM 300-399MG/ML IODINE,1ML Methylprednisolone 40 MG inj Njx interlaminar crv/thrc LOCM 300-399MG/ML IODINE,1ML Methylprednisolone 40 MG inj Office/outpatient visit,new, mod 2020 Office/outpatient visit,new, mod 2020 X-ray exam of neck spine2-3 views Advance Directives Directive Yes / No Effective Date File Name No Information Encounters Encounter Description Practice Location Reason(s) For Visit Diagnoses Date Provider Providers Copied on Encounter [facility], [facility] [place], [address], [place] tel:[phone] No Information 4 Caron Panchal. [address] [place], [place], [id number], [place]. tel:[phone] [facility], [facility] [place], [address], [place] tel:[phone] [facility] [employer] Radiculopathy , cervical region 4 Hugh Lyssa. [address] [place], [place], [id number], [place]. tel:[phone] Referring Provider: Bladimir Hood, [address] [place], [address]. tel:[phone] [facility], [facility] [place], [address], [place] tel:[phone] [facility] [employer] Radiculopathy , cervical region 4 Caron Panchal. [address] [place], [place], [id number], [place]. tel:[phone] Referring Provider: Bladimir Hood, [facility] [place], [address]. tel:[phone] [facility], [address] [place], [address], [place] tel:[phone] [facility] Radiculopathy , cervical region 4 Caron Panchal. [address], [place], [id number], [place]. tel:[phone] Referring Provider: Bladimir Hood, [address] [place] [address], [address]. tel:[phone] Office/outpa tient visit,est, high [facility], [facility] [place], [address], [place] tel:[phone] [facility] Radiculopathy , cervical region 4 Erwin Garrison. [address] [place], [address]. tel:[phone] Referring Provider: Amador Branham, [facility] [place], [address]. tel:[phone] [facility], [address] [place], [address], [place] tel:[phone] [facility] Spondylosis without myelopathy or radiculopathy , cervical region 4 Yonas English. [address] [place], [address], [place]. tel:[phone] Gerald Guidry. tel:[phone] ring Provider: mAador Branham, [address] [place], [address]. tel:[phone] Office/outpa tient visit,est, mod [facility], [address] [place], [address], [place] tel:[phone] [facility] CervicalgiaRa diculopathy, cervical region May- 4 Maikel Mcgovern. [address], [place], [place], [id number], . tel:[phone] Referring Provider: Amador Branham, [address] [place], [address]. tel:[phone] [facility], [facility] [place], [address], [place] tel:[phone] [facility] No Information May- 4 Yonas English. [address] [place], [address], [place]. tel:[phone] Referring Provider: Amador Branham, [facility] [place], [address]. tel:[phone] Office/outpa tient visit,est, mod [facility], [facility] [place], [address], [place] tel:[phone] [facility] Cervicalgia April- 4 Maikel Mcgovern. [address], [place], [place], [id number], [place]. tel:[phone] Gerald Guidry. tel:[phone] ring Provider: Bladimir Aguilar, [facility] [place], [address]. tel:[phone] [facility], [facility] [place], [address], [place] tel:[phone] [facility] Radiculopathy , cervical region Mar- 4 Yonas English. [address] [place] [address], [address], [place]. tel:[phone] Gerald Guidry. tel:[phone] ring Provider: Bladimir Aguilar, [address] [place], [place], [facility]. tel:[phone] [facility], [address] [place], [address], [place] tel:[phone] [facility] Radiculopathy , cervical region 4 Yonas English. [address] [place], [address], [place]. tel:[phone] Gerald Guidry. tel:[phone] ring Provider: Bladimir Aguilar, [address] [facility], [place], [address]. tel:[phone] Office/outpa tient visit,est, mod [facility], [address] [place], [address], [place] tel:[phone] [facility] CervicalgiaRa diculopathy, cervical region 4 Maikel Mcgovern. [address] [place], [place], [id number], [place]. tel:[phone] Gerald Cardosoey. tel:[phone] ring Provider: Bladimir Aguilar, [address] [facility], [place], [address]. tel:[phone] [facility], [address] [place], [address], [place] tel:[phone] [facility] Radiculopathy , cervical region 3 Jenaro Gene. [address] [place], [place], [id number], [place]. tel:[phone] Referring Provider: Bladimir Aguilar, [address] [facility], [place], [address]. tel:[phone] [facility], [address] [place], [address], [place] tel:[phone] [facility] Radiculopathy , cervical region 2 Jenaro Gene. [address] [place], [place], [id number], [place]. tel:[phone] Referring Provider: Lyssa Leonard, [address] [place], [address]. tel:[phone] Office/outpa tient visit,est, mod [facility], [facility] [place], [address], [place] tel:[phone] [facility] CervicalgiaSp ondylosis w/o myelopathy or radiculopathy , cervical regionRadicul opathy, cervical region Oct- 0-202 2 Horacio Omalley. [address] [place], [address], [place]. tel:[phone] Referring Provider: Bladimir Aguilar, [address] [place], [place], [facility]. tel:[phone] [facility], [address] [place] [address], [facility], [place] tel:[phone] [facility] Radiculopathy , cervical region Oct-0 1 Jenaro Gene. [address] [place], [place], [id number], [place]. tel:[phone] Referring Provider: Bladimir Aguilar, [address] [facility], [place], [place], [facility]. tel:[phone] [facility], [address] [place] [address], [address], [place] tel:[phone] [facility] Radiculopathy , cervical region Sep-2 1 Jenaro Gene. [address] [place], [place], [id number], [place]. tel:[phone] Referring Provider: Bladimir Aguilar, [address] [place], [place], [facility]. tel:[phone] [facility], [facility] [place], [address], [place] tel:[phone] [facility] Radiculopathy , cervical region Jul- 1 Jenaro Gene. [address] [place], [place], [id number], [place]. tel:[phone] Referring Provider: Bladimir Aguilar, [address] [place], [place], [facility]. tel:[phone] Office/outpa tient visit,[facility], [address] [place], [place], [facility], tel:[phone] [facility] Spondylosis w/o myelopathy or radiculopathy , cervical regionRadicul opathy, cervical region 1 Jenaro Brian. [address] [place], [place], [id number], [place]. tel:[phone] Referring Provider: Bladimir Aguilar, [address] [place], [place], [facility]. tel:[phone] Office/outpa tient visit,[facility], [facility] [address] [place], [facility], tel:[phone] [facility] Cervicalgia 1 David Garrison. [address] [place], [place], [facility], [place]. tel:[phone] Specialist: Gerald Guidry, [address] [place] [address] 302, [place], [address]. tel:[phone] ring Provider: Bladimir Aguilar, [address] [place] [address], [facility]. tel:[phone] Family History Family Member Type Diagnosis Age At Onset No Information Payers Payer name Insurance type Covered green party ID Ramandeep alva(s) [employer] - [id number] Social History Type Description Quantity Date Captured Comments Sex Male Smoking Status No Information Chief Complaint And Reason For Visit No Information Reason For Referral Reason For Referral No Information History Of Present Illness Encounter Date Complaint History Of Prese nt Illness No Information Functional Status Date Functional Assessmen t No Information Medications Administered Medication Instructions Dosage Effective Dates (start - stop) Status Comments No Drug Therapy Prescribed Instructions Date Instruction Additional Infor mation No Information Assessments Type Assessment Date No Information Patient Care Teams Name Effective Dates (start - stop) Status Members No Information
[2025-06-11 12:12] LABS: Testosterone,Total 299 ng/dL (264-916)
--- OUTSIDE RECORDS SUMMARY | 2025-06-11 13:25 | XMS_ITS | Clinical Summary ---
Author Organization [facility] Address [address] [place] [address] Phone Care Team Providers Care Automotive Design Layout Drafter Name Role Phone Unavailable Primary Care Provider [...] - 2023-2 5 season) 2024 Influenza Vaccine (#1) 2025 Meningococcal B Vaccine Aged Out No l onger eligible based on patient's age to complete this topic
== END 2025-06-10 23:59 | disposition home or self-care (01) ==
LOC: LAB.DROPOF 06-11 13:23
PROVIDERS: PCP Nurse Practitioner Family; Visit Provider Nurse Practitioner Family
DX: R79.89 Other specified abnormal findings of blood chemistry (principal)
CPT/HCPCS: 84403

== ENCOUNTER 2025-11-12 14:25 | Outpatient (CLI) | payer BC, SELFPAY | END 2025-11-12 23:59 | disposition home or self-care (01) | LOC: RT 14:26 | PROVIDERS: PCP Nurse Practitioner Family; Visit Provider Internal Medicine Pulmonary Disease | DX: R06.09 Other forms of dyspnea (principal) | CPT/HCPCS: 94060; 94618; 94726; 94729 ==